=== PATIENT | male | born 1955 | race Caucasian/White ===

== ENCOUNTER 2017-09-21 18:11 | Emergency (ER) | payer MEDICAID ==
[~2017-09-21] VITALS: Ht 172.7 cm; Wt 179.0 kg
[2017-09-21 22:24] VITALS: BP 181/119
[2017-09-21] MEDS ORDERED: FUROSEMIDE 100MG/10ML VIAL IVP ONE (22:30)
[2017-09-21 22:42] LABS: BASOPHILS % 1.2 % (0.0-2.0); EOSINOPHILS % 3.2 % (0.0-5.0); HEMATOCRIT. 49.7 % (42.0-52.0); HEMOGLOBIN. 16.6 g/dL (14.0-18.0); LYMPHOCYTES % 17.6 % (20.0-50.0); MEAN CORPUSCULAR HEMOGLOBIN 31.8 pg (28.0-32.0); MEAN CORPUSCULAR VOLUME 95.1 fL (80.0-94.0); PLATELET 159 x1000/uL (130-400); RED BLOOD CELL COUNT 5.22 mill/uL (4.7-6.1); RED CELL DISTRIBUTION WIDTH 13.9 % (11.6-14.6)
[2017-09-21 22:51] LABS: INR 1.2; PROTHROMBIN TIME 12.2 sec (9.4-11.6)
[2017-09-21 22:59] LABS: CARBON DIOXIDE 32 mEq/L (21-32); CHLORIDE 106 mEq/L (98-107); TROPONIN I 0.13 ng/mL (0.00-0.04)
== END 2017-09-21 23:39 | disposition left against medical advice (07) ==
LOC: ER 19:30
DX: I50.9 Heart failure, unspecified (principal); I11.0 Hypertensive heart disease with heart failure
CPT/HCPCS: 36415; 71010; 80053; 83880; 84484; 85025; 85610; 99285; J1940; Z7610; 93005